=== PATIENT | male | born 2000 | race African-American/Black ===

== ENCOUNTER 2018-08-17 12:08 | Emergency (ER) | payer OTHER ==
[2018-08-17] MEDS: NS 1,000 ML IV (13:08)
[2018-08-17 13:14] LABS: KETONE, URINE AUTO RFX 2+ mg/dL (NEGATIVE); LEUKOCYTE ESTERASE UR AUTO RFX NEGATIVE (NEGATIVE); MUCUS, URINE RFX MODERATE (NEGATIVE); NITRITE, URINE AUTO RFX NEGATIVE (NEGATIVE); RBC, URINE AUTO RFX 31 /HPF (0-3); SPECIFIC GRAVITY UR AUTO RFX 1.027 (1.002-1.035); SQUAM EPITHELIAL CELL UR AURFX 0 /HPF (0-6); WBC, URINE AUTO RFX 6 /HPF (0-3)
[2018-08-17 13:17] LABS: BASO % 0.2 % (0.0-1.0); EOS % 0.1 % (0.0-3.0); HEMATOCRIT 45.7 % (42.0-52.0); HEMOGLOBIN 15.6 g/dl (13.5-17.5); IMMATURE GRANULOCYTE % 0.4 % (0-3.0); LYMPH # 1.4 10^3/uL (1.5-6.5); LYMPH % 9.1 % (24.0-44.0); MEAN CORPUSCULAR HEMOGLOBIN 31.6 pg (27.0-33.0); MEAN CORPUSCULAR HGB CONC 34.1 g/dl (32.0-36.5); MEAN CORPUSCULAR VOLUME 92.7 fl (80.0-96.0); MONO # 1.6 10^3/uL (0.0-0.8); MONO % 10.2 % (0.0-5.0); NEUTROPHILS # 12.6 10^3/uL (1.8-7.7); PLATELET COUNT, AUTOMATED 223 10^3/uL (150-450); RED BLOOD COUNT 4.93 10^6/uL (4.30-6.10); RED CELL DISTRIBUTION WIDTH 12.6 % (11.5-14.5); WHITE BLOOD COUNT 15.8 10^3/uL (4.0-10.0)
[2018-08-17 13:38] LABS: ALBUMIN 4.1 GM/DL (3.2-5.2); ALBUMIN/GLOBULIN RATIO 1.08 (1.00-1.93); ALKALINE PHOSPHATASE 73 U/L (45-117); ALT/SGPT 31 U/L (12-78); ANION GAP 9 MEQ/L (8-16); AST/SGOT 22 U/L (7-37); BILIRUBIN,DIRECT 0.3 MG/DL (0.0-0.2); BILIRUBIN,TOTAL 1.3 MG/DL (0.2-1.0); BLOOD UREA NITROGEN 12 MG/DL (7-18); CALCIUM LEVEL 9.4 MG/DL (8.5-10.1); CARBON DIOXIDE LEVEL 26 MEQ/L (21-32); CHLORIDE LEVEL 100 MEQ/L (98-107); CREATININE FOR GFR 0.93 MG/DL (0.70-1.30); GLUCOSE, FASTING 96 MG/DL (70-100); POTASSIUM SERUM 4.2 MEQ/L (3.5-5.1); SODIUM LEVEL 135 MEQ/L (136-145); TOTAL PROTEIN 7.9 GM/DL (6.4-8.2)
[2018-08-17 13:40] LABS: LACTIC ACID SEPSIS PROTOCOL 1.3 MMOL/L (0.4-2.0)
[2018-08-17] MEDS ORDERED: ISOVUE-370 76% 100ML VIAL (Q9967) As Ordered (13:47)
[2018-08-17 14:34] LABS: ERYTHROCYTE SEDIMENTATION RATE 6 mm/hr (0-15)
[2018-08-17 15:07] LABS: CONTROL LINE MONO INT CTR LINE PRESENT; MONO SCRN NEGATIVE (NEGATIVE)
[2018-08-17] MEDS: dexameTHASONE 4 MG/ML 1ML VIAL (J1100) IV (16:12)
[2018-08-17] MEDS ORDERED: MAGIC MOUTHWASH SUSPENSION BTL SS (17:00)
[2018-08-17] MEDS: MAGIC MOUTHWASH SUSPENSION BTL SS (18:09)
== END 2018-08-17 18:34 | disposition home or self-care (01) ==
LOC: M ED 12:08
DX: J03.90 Acute tonsillitis, unspecified (principal); F17.210 Nicotine dependence, cigarettes, uncomplicated; Z79.899 Other long term (current) drug therapy
CPT/HCPCS: Q9967

== ENCOUNTER 2018-12-10 17:57 | Emergency (ER) | payer OTHER ==
[~2018-12-10] VITALS: Ht 195.6 cm; Wt 110.5 kg
[~2018-12-10 17:57] MED LIST: APAP500T10 PO; MAGICMW SSP; PRED20TA PO; PSEU30TA21 PO
[2018-12-10] MEDS ORDERED: IBUP-1114 PO (18:08)
[2018-12-10] MEDS ORDERED: ACETAMINOPHEN 325 MG TAB PO ONE (18:30)
--- NOTE | 2018-12-10 18:49 | REP ---
Clinical: Trauma. Technique: AP, lateral, bilateral oblique and sunrise views right knee . Findings: The osseous structures and joint spaces are intact and normal. There is no evidence for acute fracture or dislocation. No joint effusion is appreciated. Surrounding soft tissues are unremarkable. No subcutaneous emphysema or radiodense foreign body. Impression: Normal examination. No acute fracture or dislocation. Electronically Signed by Diego Ocampo MD 12/10/2018 06:41 P
[2018-12-10] MEDS ORDERED: KETO10TAB PO (18:51)
[2018-12-10 19:09] VITALS: BP 135/80
== END 2018-12-10 19:20 | disposition home or self-care (01) ==
LOC: M ED 17:57
DX: S80.01XA Contusion of right knee, initial encounter (principal); W21.89XA Striking against or struck by other sports equipment, initial encounter; Y92.89 Other specified places as the place of occurrence of the external cause; Y93.23 Activity, snow (alpine) (downhill) skiing, snowboarding, sledding, tobogganing and snow tubing

== ENCOUNTER 2019-03-21 06:34 | Emergency (ER) | payer OTHER ==
[~2019-03-21] VITALS: Ht 190.5 cm; Wt 115.0 kg
[~2019-03-21 06:34] MED LIST changes: +IBUP-1114 PO; +KETO10TAB PO
[2019-03-21] MEDS ORDERED: METOCLOPRAMIDE INJ 10MG/2ML VIAL (J2765) IV ONE (07:15)
[2019-03-21] MEDS ORDERED: ACETAMINOPHEN 500 MG TAB PO ONE (07:15)
[2019-03-21] MEDS ORDERED: diphenhydrAMINE INJ 50MG/ML VIAL (J1200) IV ONE (07:15)
[2019-03-21] MEDS ORDERED: NS 1,000 ML IV ONE (07:15)
--- NOTE | 2019-03-21 07:29 | REPVR ---
EXAM: CT Head Without Contrast EXAM DATE/TIME: 03/21/2019 7:14 AM CLINICAL HISTORY: 18 years old, male; Pain; Headache not specified; Additional info: Headache/vomiting TECHNIQUE: Imaging protocol: Axial computed tomography images of the head without contrast. Radiation optimization: All CT scans at this facility use at least one of these dose optimization techniques: automated exposure control; mA and/or kV adjustment per patient size (includes targeted exams where dose is matched to clinical indication); or iterative reconstruction. COMPARISON: No relevant prior studies available. FINDINGS: Brain: The most inferior aspect of the temporal lobes and frontal lobe are not included on this exam. The loja-white matter differentiation is preserved.. There is no intra-or extra-axial hemorrhage. There is no mass effect. Ventricles: Normal. No ventriculomegaly. Bones/joints: Unremarkable. No acute fracture. Sinuses: Visualized sinuses are unremarkable. No fluid levels. Mastoid air cells: Visualized mastoid air cells are well aerated. No mastoid effusion. Soft tissues: Unremarkable. IMPRESSION: No CT evidence of intracranial hemorrhage, mass effect or midline shift. Most inferior aspect of the temporal and frontal lobes are not included on this exam. Electronically signed by: Mckinley Keenan On 03/21/2019 07:29:00 AM
[2019-03-21] MEDS ORDERED: KETOROLAC 30 MG/ML VIAL (J1885) IV ONE (08:30)
[2019-03-21 08:40] VITALS: BP 128/59
== END 2019-03-21 08:58 | disposition home or self-care (01) ==
LOC: M ED 06:34
DX: R51 Headache (principal); Z72.0 Tobacco use
CPT/HCPCS: 70450; 96361; 96374; 96375; 99283; J1200; J1885; J2765

== ENCOUNTER 2019-07-06 22:03 | Emergency (ER) | payer OTHER ==
[~2019-07-06] VITALS: Ht 190.5 cm; Wt 110.0 kg
[2019-07-06] MEDS ORDERED: ALBUTEROL SULFATE 2.5 MG/0.5 ML INH NEB SOLN NEB ONE (23:45)
[2019-07-06] MEDS ORDERED: predniSONE 20 MG TAB PO ONE (23:45)
[2019-07-07 01:06] LABS: INFLUENZA A AMPLIFICATION NEGATIVE (NEGATIVE); INFLUENZA B AMPLIFICATION NEGATIVE (NEGATIVE)
[2019-07-07 01:13] VITALS: BP 136/31
[2019-07-07] MEDS ORDERED: VENTAER INH (01:18)
[2019-07-07] MEDS ORDERED: PRED20TA PO (01:18)
[2019-07-07] MEDS ORDERED: ALBUTEROL 90 MCG/ACT 8GM HFA INHALER INH ONE (01:30)
--- NOTE | 2019-07-07 09:38 | REP ---
CHEST PA AND LATERAL: 07/06/2019. Clinical history: Cough, dyspnea. Findings: No prior studies. Lungs marginally adequate in the degree of inflation. There is some cuffed bronchi in the perihilar regions bilaterally. There is no dense consolidation, effusion, infiltrate, atelectasis or mass. Heart is not enlarged. Aorta and airway are intact and there is no widening of the mediastinum. The bony thorax shows no focal lesion. Impression: 1. Perihilar changes of bronchitis or reactive airway disease. No dense consolidation or effusion. Electronically Signed by Omega Rosas MD 07/07/2019 07:31 P
== END 2019-07-07 01:26 | disposition home or self-care (01) ==
LOC: M ED 22:03
DX: J41.8 Mixed simple and mucopurulent chronic bronchitis (principal); Z87.891 Personal history of nicotine dependence

== ENCOUNTER 2020-09-23 21:53 | Inpatient (IN) | payer OTHER ==
[~2020-09-23] VITALS: Ht 190.5 cm; Wt 109.0 kg
[~2020-09-23 21:53] MED LIST changes: +VENTAER INH
[2020-09-23] MEDS ORDERED: NS 1,000 ML IV ONE (22:45)
[2020-09-23] MEDS ORDERED: METOCLOPRAMIDE INJ 10MG/2ML VIAL (J2765 PER 1) IV ONE (22:45)
[2020-09-23 22:50] LABS: BASO % 0.2 % (0.0-1.0); EOS # 0.1 10^3/uL (0.0-0.5); EOS % 1.2 % (0.0-3.0); HEMATOCRIT 48.5 % (42.0-52.0); HEMOGLOBIN 16.6 g/dl (13.5-17.5); LYMPH # 2.9 10^3/uL (1.5-5.0); LYMPH % 32.4 % (24.0-44.0); MEAN CORPUSCULAR HEMOGLOBIN 31.9 pg (27.0-33.0); MEAN CORPUSCULAR HGB CONC 34.2 g/dl (32.0-36.5); MEAN CORPUSCULAR VOLUME 93.1 fl (80.0-96.0); MONO # 0.9 10^3/uL (0.0-0.8); MONO % 10.2 % (0.0-5.0); NEUTROPHILS # 4.9 10^3/uL (1.5-8.5); NEUTROPHILS % 55.8 % (36.0-66.0); PLATELET COUNT, AUTOMATED 272 10^3/uL (150-450); RED BLOOD COUNT 5.21 10^6/uL (4.30-6.10); WHITE BLOOD COUNT 8.9 10^3/uL (4.0-10.0)
--- NOTE | 2020-09-23 23:08 | REPVR ---
PROCEDURE INFORMATION: Exam: CT Head Without Contrast Exam date and time: 09/23/2020 10:51 PM Age: 20 years old Clinical indication: Altered mental status/memory loss TECHNIQUE: Imaging protocol: Computed tomography of the head without contrast. Radiation optimization: All CT scans at this facility use at least one of these dose optimization techniques: automated exposure control; mA and/or kV adjustment per patient size (includes targeted exams where dose is matched to clinical indication); or iterative reconstruction. COMPARISON: CT Head without contrast 03/21/2019 7:11 AM FINDINGS: Brain: No intracranial mass, mass effect or midline shift. No acute intracranial hemorrhage. No CT evidence of acute cortical infarct. Ventricles, cisterns, and sulci are normal in size for age. Bones/joints: No calvarial fracture or destructive process. Paranasal sinuses: Imaged paranasal sinuses are normally aerated. Mastoid air cells: Mastoid air cells and middle ear structures are normally aerated. Orbital cavity: Imaged orbits are unremarkable. Soft tissues: No focal extracranial soft tissue swelling. IMPRESSION: No acute or concerning focal intracranial abnormality. Electronically signed by: Davie Sparks On 09/23/2020 23:08:23 PM
[2020-09-23 23:16] LABS: ACETAMINOPHEN LEVEL < 2.0 UG/ML (10.0-30.0); ALBUMIN 4.3 GM/DL (3.2-5.2); ALT/SGPT 27 U/L (12-78); BILIRUBIN,DIRECT 0.2 MG/DL (0.0-0.2); BILIRUBIN,TOTAL 0.6 MG/DL (0.2-1.0); BLOOD UREA NITROGEN 11 MG/DL (7-18); CALCIUM LEVEL 8.7 MG/DL (8.5-10.1); CARBON DIOXIDE LEVEL 29 MEQ/L (21-32); CHLORIDE LEVEL 104 MEQ/L (98-107); CK-MB VALUE MASS < 1.0 NG/ML (<3.6); CPK CREATINE PHOSPHOKINASE 677 U/L (39-308); ETHYL ALCOHOL (ETHANOL) 0.005 % (0.000-0.010); GLOMERULAR FILTRATION RATE > 60.0 (>60); GLUCOSE, FASTING 99 MG/DL (70-100); MB/CK RELATIVE INDEX 0.15 (< OR =4); POTASSIUM SERUM 3.7 MEQ/L (3.5-5.1); SALICYLATE LEVEL 1.8 MG/DL (5.0-30.0); SODIUM LEVEL 143 MEQ/L (136-145); TOTAL PROTEIN 7.5 GM/DL (6.4-8.2); TROPONIN I < 0.02 NG/ML (< 0.10)
[2020-09-23 23:23] LABS: AMPHETAMINES LEVEL URINE NEGATIVE (NEGATIVE); BARBITURATES URINE NEGATIVE (NEGATIVE); BENZODIAZEPINES URINE NEGATIVE (NEGATIVE); CANNABINOIDS URINE NEGATIVE (NEGATIVE); COCAINE METABOLITE URINE NEGATIVE (NEGATIVE); METHADONE URINE NEGATIVE (NEGATIVE); OPIATES URINE NEGATIVE (NEGATIVE); PHENCYCLIDINE URINE NEGATIVE (NEGATIVE)
[2020-09-24] MEDS ORDERED: MAALOX 30 ML SUSP *UDC PO PRN
[2020-09-24] MEDS ORDERED: ACETAMINOPHEN TAB 650MG DOSE (2X325MG) PO PRN
[2020-09-24] MEDS ORDERED: MOM 30ML SUSPENSION UDC PO PRN
--- NOTE | 2020-09-24 00:01 | HPEPDOC ---
[facility] Medical History & Physical Date of Admission Sep 23, 2020 Date of Service: Sep 24, 2020 Attending Physician: ABDULLAHI STOUT MD History and Physical TIME OF SERVICE: 1210am CHIEF COMPLAINT: amnesia HISTORY OF PRESENT ILLNESS: This 20 yr old M presented with c/o a lapse in his memory. This morning he remembers waking up, talking with his as they prepared to sign paper work for a lease on their new apartment, and added that they had plans to celebrate late on during the day. The next thing he remembers is waking up in the apartment lying on the floor and that his was not in the apartment. He tried to call her but she didn't strip picker her phone. He called one of his friends who told him that he and his have been since and that he is going to get a divorce. His friend also told him that he was recently found outside after binge drinking. The patient was unable to recall these events. Prior to living in the apartment the patient was able to recall that he had been living in the [facility]. He was recently deployed in [place]; after returning has been struggling with anger. Currently his only other c/o is of a headache affecting the front of his head which is not typical of his migraines; usually the migraines affect the back of his head. REVIEW OF SYSTEMS: 12 point review of systems negative except as listed in HPI PAST MEDICAL/ SURGICAL HISTORY: Migraines Possible asthma (has been given inhaler but has not been formally tested) SOCIAL HISTORY: + tobacco 1 pack per week + alcohol occasionally - recreational drugs His siblings and parents live in [place] FAMILY HISTORY: HTN, DLP ALLERGIES: Please see below. HOME MEDICATIONS: Please see below. PHYSICAL EXAMINATION: Vital Signs Date Time Temp Pulse Resp B/P (MAP) Pulse Ox O2 Delivery O2 Flow Rate FiO2 09/23/20 21:54 99.2 102 18 139/89 (106) 98 Room Air GEN: well-nourished / well developed/ teary during parts of the exam INTEGUMENT: not flushed/ not jaundice / + tattoos HEENT: lips acyanotic /mucus membranes moist and pink / mild conjuctival injection CVS: RRR/NMRG/ radial pulses intact / no lower extremity edema LUNGS: able to speak full sentences without stopping to take a breath / no coughing / coarse expiratory rhonchi bilaterally ABDOMEN: Contour (flat) /soft & not tender with palpation MSK/EXTREMITIES: NCAT / range of motion intact in all 4 extremities NEURO: CN 2-12 are grossly intact / speech is not dysarthric / strength is 5/5 / has left and right horizontal nystagmus PSYCH: alert and oriented / able to understand and follow all commands LABORATORY DATA: 09/23/20 22:23 Immature Granulocyte % (Auto) 0.2, Neutrophils (%) (Auto) 55.8, Lymphocytes (%) (Auto) 32.4, Monocytes (%) (Auto) 10.2H, Eosinophils (%) (Auto) 1.2, Basophils (%) (Auto) 0.2, Neutrophils # (Auto) 4.9, Lymphocytes # (Auto) 2.9, Monocytes # (Auto) 0.9H, Eosinophils # (Auto) 0.1, Basophils # (Auto) 0.0, Nucleated Red Blood Cells % (auto) 0.0, Urine Color YELLOW, Urine Appearance HAZY, Urine pH 6.0, Urine Specific [place] 1.027, Urine Protein 1+H, Urine Glucose (UA) NEGATIVE, Urine Ketones TRACEH, Urine Blood 1+H, Urine Nitrite NEGATIVE, Urine Bilirubin NEGATIVE, Urine Urobilinogen 4.0H, Urine Leukocyte Esterase NEGATIVE, Urine WBC (Auto) 2, Urine RBC (Auto) 4H, Urine Hyaline Casts (Auto) 0, Urine Bacteria (Auto) NEGATIVE, Urine Squamous Epithelial Cells 0, Urine Mucus (Auto) SMALL, Urine Sperm (Auto) , Anion Gap 10, Glomerular Filtration Rate > 60.0, Carlos cium Level 8.7, Total Bilirubin 0.6, Direct Bilirubin 0.2, Aspartate Amino Transf (AST/SGOT) 23, Alanine Aminotransferase (ALT/SGPT) 27, Alkaline Phosphatase 68, Total Creatine Kinase 677H, Creatine Kinase MB < 1.0, Creatine Kinase MB Relative Index 0.15, Troponin I < 0.02, Total Protein 7.5, Albumin 4.3, Albumin/Globulin Ratio 1.3, Thyroid Stimulating Hormone (TSH) 1.080, Salicylates Level 1.8L, Acetaminophen Level < 2.0L, Ethyl Alcohol Level 0.005 09/23/20 22:47: Urine Opiates Screen NEGATIVE, Urine Methadone Screen NEGATIVE, Urine Barbiturates Screen NEGATIVE, Urine Phencyclidine Screen NEGATIVE, Urine Amphetamines Screen NEGATIVE, Urine Benzodiazepines Screen NEGATIVE, Urine Cocaine Metabolite Screen NEGATIVE, Urine Cannabinoids Screen NEGATIVE IMAGING: CT head "No acute or concerning focal intracranial abnormality." MRI brain "Unremarkable noncontrast MRI of the brain." MRA brain "Unremarkable MR angiogram of the [place] and intracranial vertebrobasilar system." MICROBIOLOGY: Please see below. ASSESSMENT: is a 20 yr old w a hx of migraines who presented w c/o memory lapse in the setting of separation from his ; he will be admitted for evaluation of amnesia. PLAN: 1. Amnesia His CT head, MRI/MRA were negative for any acute process. His metabolic panel & drug screen was negative I suspect his amnesia may be psychogenic or dissociative in nature and due to trauma from separation & impending divorce from his . Plan: admit to medical floor for observation overnight/ they day time team may consider contacting his family and friends to obtain collateral history / The patient also mentioned having issues with anger after returning from [facility]; it is possible that he may have PTSD and or Chronic Traumatic Encephalopathy if he has been exposed to physical trauma that has caused concussions. The day time team may consider Psych and Neuro Consult to determine if he should under-go undergo formal screening for concussions (which the [place] conducts) and possibly have an LP to obtain CSF for amyloid and tau and functional neuroimaging (ie amyloid positron emission tomography) / 1:1 sitter 2. Migraines / SALINAS Plan: acetaminophen PRN 3. Tobacco Abuse Plan: smoking cessation education 4. Elevated CPK / Mild Rhabdo Plan: IVF / f/u CPK, BUN, Cr and GFR 5. Possible Asthma vs Reactive Airway disease He had expiratory rhonchi and mentioned that he has been told that he may have asthma Plan: f/u w PCP for referral for formal PFTs DVT PROPHYLAXIS: SCDs DISPOSITION: home after more than 2 midnight's stay Home Medications No Active Prescriptions or Reported Meds Allergies Coded Allergies: No Known Allergies (Unverified , 09/23/20) A-FIB/CHADSVASC A-FIB History Current/History of A-Fib/PAF?: No Current PO Anticoag Therapy: No ABDULLAHI STOUT MD Sep 24, 2020 00:01
--- NOTE | 2020-09-24 01:18 | REPVR ---
PROCEDURE INFORMATION: Exam: MR Head Without Contrast Exam date and time: 09/24/2020 12:41 AM Age: 20 years old Clinical indication: Pain; Altered mental status/memory loss; Headache; Tension; Patient HX: H/a with memory loss; Additional info: Headache, amnesia TECHNIQUE: Imaging protocol: MR of the head without contrast. COMPARISON: CT Head without contrast 09/23/2020 10:43 PM FINDINGS: No abnormal restriction of diffusion to indicate acute CVA. Midline structures and cerebellar tonsillar position appear normal. Ventricles, cisterns and sulci are symmetric and normal for age. No intracranial mass, midline shift or abnormal extra-axial fluid. No acute intracranial hemorrhage or hemosiderin deposition. No abnormal white matter signal on FLAIR and T2 sequences. Optic chiasm and pituitary infundibulum appear normal. No cerebellopontine angle mass Normal vascular flow voids in major intracranial arteries and dural venous sinuses. Paranasal sinuses are normally aerated. Mastoid air cells are normally aerated. Optic globes and orbits are unremarkable. IMPRESSION: Unremarkable noncontrast MRI of the brain. Electronically signed by: Davie Sparks On 09/24/2020 01:18:27 AM
--- NOTE | 2020-09-24 01:20 | REPVR ---
PROCEDURE INFORMATION: Exam: MR Angiogram Head Without Contrast, Arteries Exam date and time: 09/24/2020 12:41 AM Age: 20 years old Clinical indication: Pain; Type not specified; Headache; Patient HX: H/a with memory loss; Additional info: Headache, amnesia TECHNIQUE: Imaging protocol: MR angiogram head without contrast. Exam focused on the arteries. 3D rendering (Not supervised by radiologist): MIP and/or 3D reconstructed images were created by the technologist. COMPARISON: CT Head without contrast 09/23/2020 10:43 PM FINDINGS: Anterior circulation: Normal flow signal and luminal caliber in the petrous, cavernous and supraclinoid internal carotid arteries. Normal appearance of the anterior cerebral artery branches and middle cerebral artery branches through the MCA trifurcations. No occlusion, high-grade focal stenosis or dissection. No aneurysm. Posterior circulation: Normal distal vertebral arteries, with patent normal caliber basilar artery, and normal superior cerebellar and posterior cerebral arteries. No occlusion, high-grade stenosis or aneurysm. IMPRESSION: Unremarkable MR angiogram of the [place] and intracranial vertebrobasilar system. Electronically signed by: Davie Sparks On 09/24/2020 01:19:51 AM
[2020-09-24] MEDS ORDERED: NS 1,000 ML IV SCH (01:30)
[2020-09-24 01:48] LABS: RSV AMPLIFICATION NEGATIVE (NEGATIVE)
[2020-09-24 03:42] VITALS: BP 124/82
[2020-09-24 06:00] VITALS: BP 117/65
[2020-09-24 06:39] LABS: MEAN CORPUSCULAR HEMOGLOBIN 32.1 pg (27.0-33.0); MEAN CORPUSCULAR HGB CONC 34.1 g/dl (32.0-36.5); PLATELET COUNT, AUTOMATED 240 10^3/uL (150-450); RED BLOOD COUNT 4.68 10^6/uL (4.30-6.10); WHITE BLOOD COUNT 7.2 10^3/uL (4.0-10.0)
[2020-09-24 06:49] LABS: HEMOGLOBIN A1c 5.5 %
[2020-09-24 07:14] LABS: ALBUMIN 3.6 GM/DL (3.2-5.2); ALT/SGPT 25 U/L (12-78); BILIRUBIN,TOTAL 0.8 MG/DL (0.2-1.0); BLOOD UREA NITROGEN 11 MG/DL (7-18); CALCIUM LEVEL 8.6 MG/DL (8.5-10.1); CARBON DIOXIDE LEVEL 30 MEQ/L (21-32); CHLORIDE LEVEL 110 MEQ/L (98-107); CPK CREATINE PHOSPHOKINASE 487 U/L (39-308); CREATININE FOR GFR 0.99 MG/DL (0.70-1.30); GLOMERULAR FILTRATION RATE > 60.0 (>60); GLUCOSE, FASTING 94 MG/DL (70-100); SODIUM LEVEL 142 MEQ/L (136-145); TOTAL PROTEIN 6.5 GM/DL (6.4-8.2)
--- NOTE | 2020-09-24 08:04 | ECGEPIP ---
[facility] - ED Test Date: 2020-09-23 Pat Name: SANTOS HERRERA Department: Room: [place] [address] Gender: Male Transition Rn: AMADO : 2000 Requested By: ARIS Carbajal Order Number: [id number] Reading MD: Elieser Ruiz Measurements Intervals [place] Rate: 92 P: 48 LA: 138 QRS: 35 QRSD: 103 T: 15 QT: 363 QTc: 449 Interpretive Statements SINUS RHYTHM POOR R WAVE PROGRESSION NO PRIORS FOR COMPARISON Electronically Signed on 09-24-2020 8:04:39 EST by Elieser Ruiz
--- NOTE | 2020-09-24 11:04 | DS.PDOC ---
Discharge Summary General Date of Admission Sep 23, 2020 at 23:56 Date of Discharge 09/24/2020 Specialist/Consultants Involve: Carissa Valdez Discharge Summary PROCEDURES PERFORMED DURING STAY: [None]. ADMITTING DIAGNOSES / DISCHARGE DIAGNOSES: Amnesia - possibly 2/2 conversion disorder COMPLICATIONS/CHIEF COMPLAINT: Global Amnesia. HISTORY OF PRESENT ILLNESS: This 20 yr old M presented with c/o a lapse in his memory. This morning he remembers waking up, talking with his as they prepared to sign paper work for a lease on their new apartment and reports that they had plans to celebrate late on during the day. The next thing he remembers is waking up in the apa rtment lying on the floor. His and his was not in the apartment. He tried to call her but she didn't greens picker her phone. He called one of his friends who told him that he and his have been since and that he is going to get a divorce. His friend also told him that he was recently found outside after binge drinking. The patient was unable to recall all of these events. Prior to living in the apartment the patient was able to recall that he had been living in the [facility]. He was recently deployed in [place]; after returning he reports struggling with anger. Currently his only other c/o is of a mild headache. HOSPITAL COURSE: Patient was admitted to the hospitalist service where he has had an extensive workup. Patient had CT scan of his brain, MRI of his brain and MRA of his brain that were all unrevealing for any acute pathology. He did not have any electrolyte abnormalities, kidney dysfunction, liver dysfunction or any signs of infection. He has remained hemodynamically stable without any adverse. Psychiatry called on consultation and case has been discussed. Patient appears to have conversion disorder. Will be evaluated by Dr. Ragsdale of psychiatry, and if she agrees patient will be discharged home with outpatient follow-up with behavioral health and primary care provider within the next 7 days. DISCHARGE MEDICATIONS: Please see below ALLERGIES: Please see below. PHYSICAL EXAMINATION ON DISCHARGE: VITAL SIGNS: Please see below. GEN: Well-nourished, well developed NAD INTEGUMENT: not flushed, not jaundice, + tattoos on arms HEENT: lips acyanotic, mucus membranes moist and pink, mild conjuctival injection CVS: RRR/NMRG, radial pulses intact, no lower extremity edema LUNGS: Able to speak full sentences without stopping to take a breath, no coughing, unable to appreciate wheezes, rhonci or rales ABDOMEN: Contour (flat), soft, nontender with palpation, normal bowel sounds MSK/EXTREMITIES: NCAT, full range of motion in all 4 extremities NEURO: CN 2-12 are grossly intact, speech is not dysarthric, strength is 5/5 in extremities throughout PSYCH: AAOX3; able to understand and follow all commands; normal mood and affect LABORATORY DATA: Please see below. IMAGING: CT head "No acute or concerning focal intracranial abnormality." MRI brain "Unremarkable noncontrast MRI of the brain." MRA brain "Unremarkable MR angiogram of the [place] and intracranial vertebrobasilar system." PROGNOSIS: Good ACTIVITY:As tolerated DIET: Regular DISCHARGE PLAN: Psychiatrist (Dr. Ragsdale) to see and examine patient prior to discharge home to follow up with outpt psych within 7 days and PCP within 7 days DISCHARGE INSTRUCTIONS: 1. Follow up with PCP and outpatient behavioral health within 7 days of hospital discharge 2. Remain compliant with treatment plan and medications 3. Return to the ER if you experience any problems DISCHARGE CONDITION: Stable TIME SPENT ON DISCHARGE: 30 minutes. Vital Signs/I&Os Vital Signs Date Time Temp Pulse Resp B/P (MAP) Pulse Ox O2 Delivery O2 Flow Rate FiO2 09/24/20 06:00 96.8 68 18 117/65 (82) 100 Room Air I&O- Last 24 Hours up to 6 AM 09/24/20 06:00 Intake Total 1300 ml Output Total 0 ml Balance 1300 ml Laboratory Data Labs 24H Laboratory Tests 2 09/23/20 22:23: Immature Granulocyte % (Auto) 0.2, Neutrophils (%) (Auto) 55.8, Lymphocytes (%) (Auto) 32.4, Monocytes (%) (Auto) 10.2H, Eosinophils (%) (Auto) 1.2, Basophils (%) (Auto) 0.2, Neutrophils # (Auto) 4.9, Lymphocytes # (Auto) 2.9, Monocytes # (Auto) 0.9H, Eosinophils # (Auto) 0.1, Basophils # (Auto) 0.0, Nucleated Red Blood Cells % (auto) 0.0, Urine Color YELLOW, Urine Appearance HAZY, Urine pH 6.0, Urine Specific [place] 1.027, Urine Protein 1+H, Urine Glucose (UA) NEGATIVE, Urine Ketones TRACEH, Urine Blood 1+H, Urine Nitrite NEGATIVE, Urine Bilirubin NEGATIVE, Urine Urobilinogen 4.0H, Urine Leukocyte Esterase NEGATIVE, Urine WBC (Auto) 2, Urine RBC (Auto) 4H, Urine Hyaline Casts (Auto) 0, Urine Bacteria (Auto) NEGATIVE, Urine Squamous Epithelial Cells 0, Urine Mucus (Auto) SMALL, Urine Sperm (Auto) , Anion Gap 10, Glomerular Filtration Rate > 60.0, Calcium Level 8.7, Total Bilirubin 0.6, Direct Bilirubin 0.2, Aspartate Amino Transf (AST/SGOT) 23, Alanine Aminotransferase (ALT/SGPT) 27, Alkaline Phosphatase 68, Total Creatine Kinase 677H, Creatine Kinase MB < 1.0, Creatine Kinase MB Relative Index 0.15, Troponin I < 0.02, Total Protein 7.5, Albumin 4.3, Albumin/Globulin Ratio 1.3, Thyroid Stimulating Hormone (TSH) 1.080, Salicylates Level 1.8L, Acetaminophen Level < 2.0L, Ethyl Alcohol Level 0.005 09/23/20 22:47: Urine Opiates Screen NEGATIVE, Urine Methadone Screen NEGATIVE, Urine Barbiturates Screen NEGATIVE, Urine Phencyclidine Screen NEGATIVE, Urine Amphetamines Screen NEGATIVE, Urine Benzodiazepines Screen NEGATIVE, Urine Cocaine Metabolite Screen NEGATIVE, Urine Cannabinoids Screen NEGATIVE 09/24/20 01:03: Coronavirus (COVID-19)(PCR) NEGATIVE, Influenza Type A (RT-PCR) NEGATIVE, Influenza Type B (RT-PCR) NEGATIVE, Respiratory Syncytial Virus (PCR) NEGATIVE 09/24/20 06:15: Nucleated Red Blood Cells % (auto) 0.0, Anion Gap 2L, Glomerular Filtration Rate > 60.0, Calcium Level 8.6, Total Bilirubin 0.8, Aspartate Amino Transf (AST/SGOT) 19, Alanine Aminotransferase (ALT/SGPT) 25, Alkaline Phosphatase 55, Total Creatine Kinase 487H, Total Protein 6.5, Albumin 3.6, Albumin/Globulin Ratio 1.2, Estimated Mean Plasma Glucose 111H, Hemoglobin A1c 5.5 CBC/BMP Laboratory Tests 09/23/20 22:23 09/24/20 06:15 Discharge Medications No Active Prescriptions or Reported Meds Allergies Coded Allergies: No Known Allergies (Unverified , 09/23/20) GME ATTESTATION GME ATTESTATION My faculty preceptor for this patient encounter was physically present during the encounter and was fully available. All aspects of the patient interview, examination, medical decision making process, and medical care plan development were reviewed and approved by the faculty preceptor. The faculty preceptor is aware and concurs with the plan as stated in the body of this note and will attest to such by his/her cosignature. ATTENDING NOTE I, Jared Christensen, have independently examined this patient and performed my own physical exam, as well as reviewed the documentation and edited where necessary. I have discussed in detail with the resident / student the findings and plan of treatment as documented by the resident / student and edited their note. I agree with their findings and treatment plan and have edited their documentatio n. I will continue to follow the patient during this hospital stay. Time spent on discharge 35 minutes Seamus Mosley DO Sep 24, 2020 11:04 JARED CHRISTENSEN MD Sep 24, 2020 16:14
[2020-09-24 14:00] VITALS: BP 126/75
[2020-09-24] MEDS ORDERED: NICOTINE 14 MG/24 HR TRANSDERMAL TD ONE (17:45)
[2020-09-24 20:50] VITALS: BP 126/75
== END 2020-09-24 20:54 | disposition home or self-care (01) | DRG 71 ==
LOC: M ED 21:53 → M ED INP 23:56 → ENRESERV 09-24 02:19 → M MSPAV 09-24 03:42
PROVIDERS: ADMIT Internal Medicine; ATTEND Internal Medicine
DX: G45.4 Transient global amnesia (principal); M62.82 Rhabdomyolysis; F44.6 Conversion disorder with sensory symptom or deficit; F17.200 Nicotine dependence, unspecified, uncomplicated; G43.909 Migraine, unspecified, not intractable, without status migrainosus; J45.909 Unspecified asthma, uncomplicated

== ENCOUNTER 2021-04-23 09:58 | Emergency (ER) | payer OTHER ==
[~2021-04-23] VITALS: Ht 185.4 cm; Wt 110.5 kg
[2021-04-23] MEDS ORDERED: NS 1,000 ML IV ONE (12:05)
[2021-04-23] MEDS ORDERED: PANTOPRAZOLE 40MG VIAL (C9113 PER 1) IV ONE (12:05)
[2021-04-23] MEDS ORDERED: ONDANSETRON 4MG/2ML VIAL IV ONE (12:10)
[2021-04-23 12:11] LABS: BASO % 0.1 % (0.0-1.0); EOS % 0.1 % (0.0-3.0); HEMATOCRIT 48.3 % (42.0-52.0); HEMOGLOBIN 16.6 g/dl (13.5-17.5); LYMPH # 0.8 10^3/uL (1.5-5.0); LYMPH % 7.3 % (24.0-44.0); MEAN CORPUSCULAR HEMOGLOBIN 32.5 pg (27.0-33.0); MEAN CORPUSCULAR HGB CONC 34.4 g/dl (32.0-36.5); MEAN CORPUSCULAR VOLUME 94.7 fl (80.0-96.0); MONO # 0.4 10^3/uL (0.0-0.8); MONO % 3.6 % (2.0-8.0); NEUTROPHILS # 9.9 10^3/uL (1.5-8.5); NEUTROPHILS % 88.5 % (36.0-66.0); PLATELET COUNT, AUTOMATED 263 10^3/uL (150-450); WHITE BLOOD COUNT 11.1 10^3/uL (4.0-10.0)
[2021-04-23 12:32] LABS: ALBUMIN 4.7 GM/DL (3.2-5.2); BILIRUBIN,DIRECT 0.1 MG/DL (0.0-0.2); BILIRUBIN,TOTAL 0.5 MG/DL (0.2-1.0); TOTAL PROTEIN 8.3 GM/DL (6.4-8.2)
[2021-04-23 12:42] LABS: INR 0.89; PROTHROMBIN TIME 12.2 SECONDS (12.5-14.3)
[2021-04-23 12:43] LABS: PARTIAL THROMBOPLASTIN TIME 24.5 SECONDS (24.2-38.5)
[2021-04-23] MEDS: GASTROGRAFIN SOLUTION 30ML PO SCH ×2 (13:14→13:15)
[2021-04-23] MEDS ORDERED: ISOVUE-370 76% 100ML VIAL As Ordered ONE (14:04)
[2021-04-23 14:23] LABS: AMPHETAMINES LEVEL URINE NEGATIVE (NEGATIVE); BARBITURATES URINE NEGATIVE (NEGATIVE); BENZODIAZEPINES URINE NEGATIVE (NEGATIVE); CANNABINOIDS URINE NEGATIVE (NEGATIVE); COCAINE METABOLITE URINE NEGATIVE (NEGATIVE); METHADONE URINE NEGATIVE (NEGATIVE); OPIATES URINE NEGATIVE (NEGATIVE); PHENCYCLIDINE URINE NEGATIVE (NEGATIVE)
--- NOTE | 2021-04-23 14:30 | REP ---
INDICATION: hematemesis, bloody stools, chronic alcohol use. COMPARISON: None. TECHNIQUE: Standard helical technique after the intravenous administration of 100 cc Isovue 370 and oral bowel preparatory contrast administration. FINDINGS: The lung bases are clear. The liver, gallbladder, spleen, pancreas, adrenal glands, and kidneys are within normal limits. The bowel loops and the mesenteries are within normal limits. The appendix is well visualized and is normal. The abdominal aorta and para-aortic regions are within normal limits. There is no free fluid or free air. There is no mass or adenopathy. The osseous structures are within normal limits. IMPRESSION: CT findings are within normal limits. <Electronically signed by Ismael Riley > 04/23/21 [id number]
[2021-04-23 14:36] VITALS: BP 143/80
[2021-04-23] MEDS ORDERED: PANT40TA29 PO (14:40)
[2021-04-23] MEDS ORDERED: SUCR1TA PO (14:40)
== END 2021-04-23 14:51 | disposition home or self-care (01) ==
LOC: M ED 09:58
DX: R10.32 Left lower quadrant pain (principal); R10.13 Epigastric pain; K92.0 Hematemesis; F17.200 Nicotine dependence, unspecified, uncomplicated
CPT/HCPCS: 74177; 80047; 80076; 80307; 81001; 83690; 85025; 85610; 85730; 86850; 86900; 86901; 99284; C9113; J2405; Q9963; Q9967

== ENCOUNTER 2021-06-30 19:24 | Emergency (ER) | payer OTHER ==
[~2021-06-30] VITALS: Ht 190.5 cm; Wt 113.8 kg
[~2021-06-30 19:24] MED LIST changes: +PANT40TA29 PO; +SUCR1TA PO
[2021-06-30 21:04] LABS: BASO % 0.3 % (0.0-1.0); EOS # 0.1 10^3/uL (0.0-0.5); EOS % 1.7 % (0.0-3.0); HEMATOCRIT 43.3 % (42.0-52.0); HEMOGLOBIN 15.2 g/dl (13.5-17.5); LYMPH % 41.4 % (24.0-44.0); MEAN CORPUSCULAR HGB CONC 35.1 g/dl (32.0-36.5); MEAN CORPUSCULAR VOLUME 93.9 fl (80.0-96.0); MONO # 0.6 10^3/uL (0.0-0.8); MONO % 8.2 % (2.0-8.0); NEUTROPHILS # 3.5 10^3/uL (1.5-8.5); PLATELET COUNT, AUTOMATED 260 10^3/uL (150-450); RED BLOOD COUNT 4.61 10^6/uL (4.30-6.10); WHITE BLOOD COUNT 7.2 10^3/uL (4.0-10.0)
[2021-06-30 21:18] LABS: INR 0.92; PROTHROMBIN TIME 12.8 SECONDS (12.7-14.5)
[2021-06-30 21:19] LABS: PARTIAL THROMBOPLASTIN TIME 32.5 SECONDS (25.9-37.0)
[2021-06-30 21:35] LABS: ALBUMIN 4.1 GM/DL (3.2-5.2); ALT/SGPT 29 U/L (12-78); BILIRUBIN,DIRECT 0.2 MG/DL (0.0-0.2); BILIRUBIN,TOTAL 0.7 MG/DL (0.2-1.0); BLOOD UREA NITROGEN 14 MG/DL (7-18); CALCIUM LEVEL 9.4 MG/DL (8.5-10.1); CARBON DIOXIDE LEVEL 28 MEQ/L (21-32); CHLORIDE LEVEL 107 MEQ/L (98-107); CREATININE FOR GFR 1.06 MG/DL (0.70-1.30); GLOMERULAR FILTRATION RATE > 60.0 (>60); GLUCOSE, FASTING 89 MG/DL (70-100); LIPASE 87 U/L (73-393); POTASSIUM SERUM 4.3 MEQ/L (3.5-5.1); SODIUM LEVEL 141 MEQ/L (136-145); TOTAL PROTEIN 7.6 GM/DL (6.4-8.2)
[2021-06-30 22:49] VITALS: BP 147/83
== END 2021-06-30 22:51 | disposition home or self-care (01) ==
LOC: M ED 19:24
DX: K62.5 Hemorrhage of anus and rectum (principal); R10.9 Unspecified abdominal pain; R11.2 Nausea with vomiting, unspecified; R51.9 Headache, unspecified; R41.3 Other amnesia; J45.909 Unspecified asthma, uncomplicated; F17.290 Nicotine dependence, other tobacco product, uncomplicated

== ENCOUNTER 2021-08-24 20:00 | Emergency (ER) | payer OTHER ==
[~2021-08-24] VITALS: Ht 190.5 cm; Wt 111.4 kg
[2021-08-24 20:00] VITALS: BP 149/79
--- OUTSIDE RECORDS SUMMARY | 2021-08-24 20:07 | CCD | Continuity of Care Document ---
Author Author Pardeep SALAS Organization Unknown Address [address] [place] [id number] Phone [phone] Care Team Providers Care Try Out Person Name Role Phone David Mcdaniel AUTM Problems Active Problems Provider Date Hemorrhage of rectum and anus Jerod Salas M.D. Onset : 07/21/2021 Social History Type Date Description Comments Sex Unknown ETOH Use Denies alcohol use Tobacco Use Start: Unknown Patient is a current smoker, smo kes some days Allergies and adverse reactions Description No Known Drug Allergies Medications Active Medications SIG Qnty Indications Ordering Provide r Date Proctocare-HC 2.5% Cream three times a day as needed for bleeding or rectal pain. 30gm Jerod Salas M.D. 07/21/[address] 1 cap by mouth twice a day before meals 90caps Zen [facility] 07/21/2021 Suprep Bowel Prep Kit 17.5-3.13-1.6GM/177ML Solution use as directed 354ml Jerod Salas M.D. 07/21/2021 History Medications No Active Medications Jerod dumont M.D. 07/21/2021 - 07/21/2021 Immunizations Description No Information Available Vital Signs Date Vital Result Comment 07/21/2021 11:21am Height 75 inches 6'3" Weight 245.00 lb BP Systolic 126 mmHg BP Diastolic 80 mmHg Heart Rate 56 /min BMI (Body Mass Index) 30.6 kg/m2 Weight 111.132 kg Body Temperature 97.2 F Results Description No Information Available Procedures Description No Information Available Medical Devices Description No Information Available Encounters Description No Information Available Assessments Date Code Description Provider 07/21/2021 R10.9 Abdominal pain Jerod nevarez M.D. 07/21/2021 K62.5 Hemorrhage of rectum and anus Ge aguilar Salas M.D. Plan of Treatment Future Appointment(s):* 09/02/2021 7:45 am - Kermit at Main Office * 09/16/2021 10:30 am - Jerod Salas M.D. at Main Office 07/21/2021 - Jerod Salas M.D.* R10.9 Abdominal pain* Comments:* 21 yo ADS who presents for a colonoscopy/egd due to a h/o rectal bleeding/abdominal pain. Positive c/o abdominal pain, weight loss, change in bowel habits,posit nick rectal bleeding. No family h/o colon cancer. No h/o chest pain, or sob. Plan:1. Colonoscopy + egd.2. Informed consent3. PPi med4. Meds for rectal bleeding. * K62.5 Hemorrhage of rectum and anus* Comments:* 1. Schedule Colonoscopy.2.Informed consent given.3.Pt. advised to stop asa,plavix, and coumadin at least 3 to 7 days prior to the procedure. Functional Status Description No Information Available Mental Status Description No Information Available Referrals Refer to Reason for Referral Status Appt Date Jerod Salas M.D. Scheduled [address] [place] [address] [phone]
--- OUTSIDE RECORDS SUMMARY | 2021-08-24 20:07 | CCD | Continuity of Care Document ---
Author Author Pardeep SALAS Organization Unknown Address [address] [place] [address] Phone [phone] Care Team Providers Care Hand Compositor Name Role Phone David Mcdaniel AUTM [phone] Problems Active Problems Provider Date Hemorrhage of [...] mouth twice a day before meals 90caps eZn Mesa 07/21/2021 Suprep Bowel Prep Kit 17.5-3.13-1.6GM/177ML [...] F Results Description No Information Available Procedures Date Code Description Status 07/21/2021 18964 Office/Outpatient New Moderate M DM 45-59 Minutes Completed Medical Devices Description No Information Available Encounters Type Date Location Provider Dx Diagnosis Office Visit 07/21/2021 9:15a Main Office Jerod Salas M.D. R 10.9 Unspecified abdominal pain K62.5 Hemorrhage of anus and rectu m Assessments Date Code Description Provider 07/21/2021 R10.9 Abdominal pain Jerod nevarez M.D. 07/21/2021 K62.5 Hemorrhage of rectum and anus Ge aguilar Salas M.D. Plan of Treatment Future Appointment(s):* 09/02/2021 7:45 am - Diane-Claudia at Main Office * 09/16/2021 10:30 am [...] Date Jerod Salas M.D. Scheduled [address] [place] [address] [phone]
--- OUTSIDE RECORDS SUMMARY | 2021-08-24 20:07 | CCD ---
Author Author [facility] Organization [facility] Address Unknown Phone Unavailable Care Team Providers Care Electromedical Service Engineer Name Role Phone Amarjit Salas MD Unavailable Unavailable Amarjit Salas MD Unavailable Unavailable Amarjit Salas MD Unavailable Unavailable Amarjit Salas MD Unavailable Unavailable Amarjit Salas MD Unavailable Unavailable Amarjit Salas MD Unavailable Unavailable Amarjit Salas MD Unavailable Unavailable Amarjit Salas MD Unavailable Unavailable Amarjit Salas MD Unavailable Unavailable Amarjit Salas MD Unavailable Unavailable Amarjit Salas MD Unavailable Unavailable Amarjit Salas MD Unavailable Unavailable Amarjit Salas MD Unavailable Unavailable Amarjit Salas MD Unavailable Unavailable Amarjit Salas MD Unavailable Unavailable Amarjit Salas MD Unavailable Unavailable Amarjit Salas MD Unavailable Unavailable Amarjit Salas MD Unavailable Unavailable Amarjit Salas MD Unavailable Unavailable Amarjit Salas MD Unavailable Unavailable Amarjit Salas MD Unavailable Unavailable Amarjit Salas MD Unavailable Unavailable Amarjit Salas MD Unavailable Unavailable Amarjit Salas MD Unavailable Unavailable Amarjit Salas MD Unavailable Unavailable Amarjit Salas MD Unavailable Unavailable Amarjit Salas MD Unavailable Unavailable Amarjit Salas MD Unavailable Unavailable Amarjit Salas MD Unavailable Unavailable Amarjit Salas MD Unavailable Unavailable Amarjit Salas MD Unavailable Unavailable Amarjit Salas MD Unavailable Unavailable Amarjit Salas MD Unavailable Unavailable Amarjit Salas MD Unavailable Unavailable Amarjit Salas MD Unavailable Unavailable Josue, S Jerod MD Unavailable Unavailable Josue, S Jerod MD Unavailable Unavailable Josue, S Jerod MD Unavailable Unavailable Josue, S Jerod MD Unavailable Unavailable Josue, S Jerod MD Unavailable Unavailable Josue, S Jerod MD Unavailable Unavailable Josue, S Jerod MD Unavailable Unavailable Josue, S Jerod MD Unavailable Unavailable Josue, S Jerod MD Unavailable Unavailable Josue, S Jerod MD Unavailable Unavailable Josue, S Jerod MD Unavailable Unavailable Josue, S Jerod MD Unavailable Unavailable Josue, S Jerod MD Unavailable Unavailable Josue, S Jerod MD Unavailable Unavailable Josue, S Jerod MD Unavailable Unavailable Re-disclosure Warning The records that you are about to access may contain information from federally-assisted alcohol or drug abuse programs. If such information is present, then the following federally mandated warning applies: This information has been disclosed to you from records protected by federal confidentiality rules (42 CFR part 2). The federal rules prohibit you from making any further disclosure of this information unless further disclosure is expressly permitted by the written consent of the person to whom it pertains or as otherwise permitted by 42 CFR part 2. A general authorization for the release of medical or other information is NOT sufficient for this purpose. The Federal rules restrict any use of the information to criminally investigate or prosecute any alcohol or drug abuse patient.The records that you are about to access may contain highly sensitive health information, the redisclosure of which is protected by Article 27-F of the [facility] Public Health law. If you continue you may have access to information: Regarding HIV / AIDS; Provided by facilities licensed or operated by the [facility] Office of Mental Health; or Provided by the [facility] Office for People With Developmental Disabilities. If such information is present, then the following [facility] mandated warning applies: This information has been disclosed to you from confidential records which are protected by state law. State law prohibits you from making any further disclosure of this information without the specific written consent of the person to whom it pertains, or as otherwise permitted by law. Any unauthorized further disclosure in violation of state law may result in a fine or care home sentence or both. A general authorization for the release of medical or other information is NOT sufficient authorization for further disc losure. Encounters Encounter Providers Location Date Indications Data Source(s ) Outpatient Attender: Jerod Salas MD Main Office 07/21/2021 09:15:00 AM EDT [facility] ([facility]) Medications Medication Brand Name Start Date Product Form Dose Route Admi nistrative Instructions Pharmacy Instructions Status Indications Reaction Description Data Source(s) Omeprazole 40 MG Delayed Release Oral Capsule Omeprazole 07/21/2021 12:00:00 AM EDT ORAL active [facility]) Hydrocortisone 25 MG/ML Topical Cream Proctocare-HC 07/21/2021 12:00:00 AM EDT active [facility] ( [facility]) No Active Medications 07/21/2021 12:00:00 AM EDT completed [facility] ([facility]) Suprep Bowel Prep Kit Suprep Bowel Prep Kit 07/21/2021 12:00:00 AM EDT active [facility]) Insurance Providers Payer name Policy type / Coverage type Policy ID Covered libertarian ID Covered libertarian's relationship to dunn Policy Dunn Plan Information [facility] ACTIVE DUTY [id number] SP [id number] [employer] [facility] REG O [id number] S [id number] Problems, Conditions, and Diagnoses Code Display Name Description Problem Type Effective Dates Data Source(s) 514383113 Hemorrhage of rectum and anus Hemorrhage of rectum and anus Problem 07/21/2021 12:00:00 AM EDT [facility] ([facility]) Surgeries/Procedures Procedure Description Date Indications Data Source(s) OFFICE OUTPATIENT NEW 45 MINUTES 07/21/2021 12:00:00 A M EDT [facility] ([facility]) Results ID Date Data Source [id number] 10/31/2020 08:43:00 AM EST [facility] Name Value Range Interpretation Code Description Data Marichuy rce(s) Supporting Document(s) SARS coronavirus 2 RNA Not Detected [facility] This lab was ordered by [facility] and reported by [facility]. ID Date Data Source [id number] 09/24/2020 01:03:00 AM EST [facility] Name Value Range Interpretation Code Description Data Marichuy rce(s) Supporting Document(s) SARS coronavirus 2 RNA [Presence] in Res piratory specimen by BRENNA with probe detection [facility] This lab was ordered by [facility] a nd reported by [facility]. Procedure Social History No Information Vital Signs ID Date Data Source UNK Name Value Range Interpretation Code Description Data Source(s) Systolic blood pressure 126 mm[Hg] 126 mm[Hg] M [facility] ([facility]) Heart rate 56 /min 56 /min [facility] Body height 75 [in_i] 75 [in_i] [facility] ([facility]) 6'3" Body weight 245.00 [lb_av] 245.00 [lb_av] [facility] ([facility]) Diastolic blood pressure 80 mm[Hg] 80 mm[Hg] [facility] ([facility]) Body mass index (BMI) [Ratio] 30.6 kg/m2 30.6 k g/m2 [facility] ([facility]) Body weight 111.132 kg 111.132 kg [facility] ([facility]) Body temperature 97.2 [degF] 97.2 [degF] [facility] ([facility])
[2021-08-24 21:21] LABS: HEMATOCRIT 41.9 % (42.0-52.0); HEMOGLOBIN 14.6 g/dl (13.5-17.5); MEAN CORPUSCULAR HGB CONC 34.8 g/dl (32.0-36.5); MEAN CORPUSCULAR VOLUME 91.9 fl (80.0-96.0); PLATELET COUNT, AUTOMATED 181 10^3/uL (150-450); RED BLOOD COUNT 4.56 10^6/uL (4.30-6.10); WHITE BLOOD COUNT 11.2 10^3/uL (4.0-10.0)
[2021-08-24 21:44] LABS: ALBUMIN 3.6 GM/DL (3.2-5.2); ALT/SGPT 151 U/L (12-78); BILIRUBIN,DIRECT 0.1 MG/DL (0.0-0.2); BILIRUBIN,TOTAL 0.5 MG/DL (0.2-1.0); BLOOD UREA NITROGEN 7 MG/DL (7-18); CALCIUM LEVEL 8.8 MG/DL (8.5-10.1); CARBON DIOXIDE LEVEL 27 MEQ/L (21-32); CHLORIDE LEVEL 106 MEQ/L (98-107); CREATININE FOR GFR 0.96 MG/DL (0.70-1.30); GLOMERULAR FILTRATION RATE > 60.0 (>60); GLUCOSE, FASTING 150 MG/DL (70-100); LIPASE 115 U/L (73-393); POTASSIUM SERUM 3.6 MEQ/L (3.5-5.1); SODIUM LEVEL 139 MEQ/L (136-145); TOTAL PROTEIN 7.1 GM/DL (6.4-8.2)
[2021-08-24 22:34] LABS: ATYPICAL LYMPH 57 % (0-5); LYMPHOCYTES 17 % (16-44); MONOCYTES 2 % (0-5); NEUTROPHILS 17 % (28-66); PLATELET ESTIMATE NORMAL (NORMAL)
--- OUTSIDE RECORDS SUMMARY | 2021-08-24 23:57 | CCD ---
Author Author [facility] Organization [facility] Address Unknown Phone Unavailable Care Team Providers Care Tie Presser Name Role Phone Amarjit Salas MD Unavailable [...] is protected by Article 27-F of the [facility] Public Health law. If you continue you may have access to information: Regarding HIV / AIDS; Provided by facilities licensed or operated by the [facility] Office of Mental Health; or Provided by the [facility] Office for People With Developmental Disabilities. If such information is present, then the following [facility] mandated warning applies: This information has been [...] law may result in a fine or shelter sentence or both. A general authorization for [...] relationship to dunn Policy Dunn Plan Information [facility] ACTIVE DUTY [id number] SP [id number] [employer] [facility] REG O [id number] S [id number] Problems, Conditions, and Diagnoses Code Display Name Description Problem Type Effective Dates Data Source(s) [id number] Hemorrhage of rectum and anus Hemorrhage of rectum and anus Problem 07/21/2021 12:00:00 AM EDT [facility] ([facility]) Surgeries/Procedures Procedure Description Date Indications Data Source(s) OFFICE OUTPATIENT NEW 45 MINUTES 07/21/2021 12:00:00 A M EDT [facility] ([facility]) Results ID Date Data Source [id number] 10/31/2020 08:43:00 AM EST [facility] Name Value Range Interpretation Code Description Data Marichuy rce(s) Supporting Document(s) SARS coronavirus 2 RNA Not Detected [facility] This lab was ordered by [facility] and reported by [facility]. ID Date Data Source [id number] 09/24/2020 01:03:00 AM EST [facility] Name Value Range Interpretation Code Description Data Marichuy rce(s) Supporting Document(s) SARS coronavirus 2 RNA [Presence] in Res piratory specimen by BRENNA with probe detection [facility] This lab was ordered by [facility] a nd reported by [facility]. Procedure Social History No Information Vital Signs ID Date Data Source UNK Name Value Range Interpretation Code Description Data Source(s) Systolic blood pressure 126 mm[Hg] 126 mm[Hg] M [facility] ([facility]) Heart rate 56 /min 56 /min [facility] Body height 75 [in_i] 75 [in_i] [facility] ([facility]) 6'3" Body weight 245.00 [lb_av] 245.00 [lb_av] [facility] ([facility]) Diastolic blood pressure 80 mm[Hg] 80 mm[Hg] [facility] Body mass index (BMI) [Ratio] 30.6 kg/m2 30.6 k g/m2 [facility] ([facility]) Body weight 111.132 kg 111.132 kg [facility] ([facility]) Body temperature 97.2 [degF] 97.2 [degF] [facility] ([facility])
== END 2021-08-24 23:50 | disposition left against medical advice (07) ==
LOC: M ED 20:00
DX: Z53.21 Procedure and treatment not carried out due to patient leaving prior to being seen by health care provider (principal)

== ENCOUNTER 2021-09-16 11:16 | Day surgery (SDC) | payer OTHER ==
[~2021-09-16] VITALS: Ht 190.5 cm; Wt 111.6 kg
[~2021-09-16 11:16] MED LIST changes: +LIDOCAINE 2% 100MG/5ML SDV (FOR ANES.) As Ordered ONE; +NS 1,000 ML IV ONE; +OMEP40CA4 PO; +propofoL 200 MG/20 ML VIAL As Ordered ONE
--- OUTSIDE RECORDS SUMMARY | 2021-09-16 11:20 | CCD ---
Author Author [facility] Organization [facility] Address Unknown Phone Unavailable Care Team Providers Care Scrap Piler Name Role Phone Amarjit Salas MD Unavailable [...] is protected by Article 27-F of the [facility] Public Health law. If you continue you may have access to information: Regarding HIV / AIDS; Provided by facilities licensed or operated by the [facility] Office of Mental Health; or Provided by the [facility] Office for People With Developmental Disabilities. If such information is present, then the following [facility] mandated warning applies: This information has [...] law may result in a fine or [facility] sentence or both. A general authorization for [...] type / Coverage type Policy ID Covered green party ID Covered green party's relationship to dunn Policy Dunn Plan Information [facility] ACTIVE DUTY [id number] SP [id number] [employer] [facility] REG O [id number] S [id number] Problems, Conditions, and Diagnoses Code Display Name Description Problem Type Effective Dates Data Source(s) [id number] Hemorrhage of rectum and anus Hemorrhage of rectum and anus Problem 07/21/2021 12:00:00 AM EDT [facility] ([facility]) Surgeries/Procedures Procedure Description Date Indications Data Source(s) OFFICE OUTPATIENT NEW 45 MINUTES 07/21/2021 12:00:00 A M EDT [facility] ([facility]) Results ID Date Data Source [id number] 09/11/2021 11:48:00 AM EST [facility] Name Value Range Interpretation Code Description Data Marichuy rce(s) Supporting Document(s) SARS coronavirus 2 RNA Not Detected [facility] This lab was ordered by [facility] and reported by [facility]. ID Date Data Source [id number] 10/31/2020 08:43:00 AM EST [facility] Name Value Range Interpretation Code Description Data Marichuy rce(s) Supporting Document(s) SARS coronavirus 2 RNA Not Detected [facility] This lab was ordered by [facility] and reported by [facility]. ID Date Data Source [id number] 09/24/2020 01:03:00 AM EST [facility] Name Value Range Interpretation Code Description Data Marichuy rce(s) Supporting Document(s) SARS coronavirus 2 RNA [Presence] in Res piratory specimen by BRENNA with probe detection [facility] This lab was ordered by [facility] a nd reported by [facility]. Procedure Social History No Information Vital Signs ID Date Data Source UNK Name Value Range Interpretation Code Description Data Source(s) Heart rate 56 /min 56 /min [facility] ([facility]) Systolic blood pressure 126 mm[Hg] 126 mm[Hg] M [facility] ([facility]) Body height 75 [in_i] 75 [in_i] [facility]" Body weight 245.00 [lb_av] 245.00 [lb_av] [facility] ([facility]) Diastolic blood pressure 80 mm[Hg] 80 mm[Hg] [facility] ([facility]) Body mass index (BMI) [Ratio] 30.6 kg/m2 30.6 k g/m2 [facility] ([facility]) Body weight 111.132 kg 111.132 kg [facility] ([facility]) Body temperature 97.2 [degF] 97.2 [degF] [facility] ([facility])
--- NOTE | 2021-09-16 12:47 | ROOR ---
Patient Name: Pardeep De Paz Procedure Date: 09/16/2021 12:29 PM Date of : 2000 Age: 21 Room: [facility] Gender: Male Note Status: Finalized Procedure: Upper Endoscopy + Biopsies Indications: Epigastric abdominal pain Providers: Jerod Salas MD Referring MD: LUANA CRAFT MD Requesting Provider: Medicines: Monitored Anesthesia Care Complications: No immediate complications. Procedure: Pre-Anesthesia Assessment: - The heart rate, respiratory rate, oxygen saturations, blood pressure, adequacy of pulmonary ventilation, and response to care were monitored throughout the procedure. The Endoscope was introduced through the mouth, and advanced to the second part of duodenum. The upper GI endoscopy was accomplished without difficulty. The patient tolerated the procedure well. Findings: The Z-line was regular and was found 40 cm from the incisors. Multiple biopsies were obtained with cold forceps for evaluation to rule out Ng's Esophagus randomly at the gastroesophageal junction. No other significant abnormalities were identified in a careful examination of the stomach. Biopsies were taken with a cold forceps in the gastric antrum for Helicobacter pylori testing. The exam of the duodenum was otherwise normal. Impression: - Z-line regular, 40 cm from the incisors. - Multiple biopsies were obtained at the gastroesophageal junction. - Biopsies were taken with a cold forceps for Helicobacter pylori testing. - The examination was otherwise normal. Recommendation: - Patient has a contact number available for emergencies. The signs and symptoms of potential delayed complications were discussed with the patient. Return to normal activities tomorrow. Written discharge instructions were provided to the patient. - High fiber diet. - Discharge patient to home. - Follow an antireflux regimen. - Continue present medications. - Await pathology results. - Telephone GI clinic for pathology results in 1 week. - The findings and recommendations were discussed with the patient. Procedure Code(s): --- Professional --- 24249, Esophagogastroduodenoscopy, flexible, transoral; with biopsy, single or multiple Diagnosis Code(s): --- Professional --- R10.13, Epigastric pain CPT copyright 2019 [employer]. All rights reserved. The codes documented in this report are preliminary and upon shuttlecock assembler review may be revised to meet current compliance requirements. Jerod Salas MD Jerod Salas MD 09/16/2021 12:46:36 PM Electronically signed by Jerod Salas MD Number of Addenda: 0 Note Initiated On: 09/16/2021 12:29 PM Estimated Blood Loss: Estimated blood loss: none.
--- NOTE | 2021-09-16 12:57 | ROOR ---
Patient Name: Pardeep De Paz Procedure Date: 09/16/2021 12:30 PM Date of : 2000 Age: 21 Room: [facility] Gender: Male Note Status: Finalized Procedure: Colonoscopy to 25 cms- POOR PREP Indications: Rectal bleeding Providers: Jerod Salas MD Referring MD: LUANA CRAFT MD Requesting Provider: Medicines: Monitored Anesthesia Care Complications: No immediate complications. Procedure: Pre-Anesthesia Assessment: - The heart rate, respiratory rate, oxygen saturations, blood pressure, adequacy of pulmonary ventilation, and response to care were monitored throughout the procedure. The Colonoscope was introduced through the anus with the intention of advancing to the cecum. The scope was advanced to the sigmoid colon before the procedure was aborted. Medications were given. The colonoscopy was performed without difficulty. The patient tolerated the procedure well. The quality of the bowel preparation was inadequate. Findings: The perianal and digital rectal examinations were normal. Non-bleeding internal hemorrhoids were found during retroflexion. The hemorrhoids were small and Grade I (internal hemorrhoids that do not prolapse). A large amount of solid stool was found in the recto-sigmoid colon. The exam was otherwise without abnormality. Impression: - Preparation of the colon was inadequate. - Non-bleeding internal hemorrhoids. - Stool in the recto-sigmoid colon. - The examination was otherwise normal. - No specimens collected. - The exam was suboptimal due to patient preparation. Recommendation: - The findings and recommendations were discussed with the patient. Procedure Code(s): --- Professional --- 21857, 53, Colonoscopy, flexible; diagnostic, including collection of specimen(s) by brushing or washing, when performed (separate procedure) Diagnosis Code(s): --- Professional --- K64.0, First degree hemorrhoids K62.5, Hemorrhage of anus and rectum CPT copyright 2019 [employer]. All rights reserved. The codes documented in this report are preliminary and upon him coder review may be revised to meet current compliance requirements. Jerod Salas MD Jerod Salas MD 09/16/2021 12:57:11 PM Electronically signed by Jerod Salas MD Number of Addenda: 0 Note Initiated On: 09/16/2021 12:30 PM Estimated Blood Loss: Estimated blood loss: none.
[2021-09-16 13:25] VITALS: BP 131/77
== END 2021-09-16 13:33 | disposition home or self-care (01) ==
LOC: M OPP 11:16
PROVIDERS: ATTEND Internal Medicine Gastroenterology
DX: K62.5 Hemorrhage of anus and rectum (principal); K64.0 First degree hemorrhoids; K21.00 Gastro-esophageal reflux disease with esophagitis, without bleeding; R10.13 Epigastric pain

== ENCOUNTER 2021-09-24 21:24 | Emergency (ER) | payer OTHER ==
[~2021-09-24] VITALS: Ht 190.5 cm; Wt 114.7 kg
[2021-09-24 21:24] VITALS: BP 166/84
[~2021-09-24 21:24] MED LIST changes: -LIDOCAINE 2% 100MG/5ML SDV (FOR ANES.) As Ordered ONE; -NS 1,000 ML IV ONE; -propofoL 200 MG/20 ML VIAL As Ordered ONE
[2021-12-02] MEDS ORDERED: IBUP-1022 PO (12:12)
== END 2021-09-25 00:06 | disposition left against medical advice (07) ==
LOC: M ED 21:24
DX: Z53.21 Procedure and treatment not carried out due to patient leaving prior to being seen by health care provider (principal)

== ENCOUNTER → 2021-12-02 | Day surgery (SDC) | payer OTHER ==
[~2021-12-02] VITALS: Ht 190.5 cm; Wt 116.6 kg
[~2021-12-02] MED LIST changes: +IBUP-1022 PO; +LIDOCAINE 2% 100MG/5ML SDV (FOR ANES.) As Ordered ONE; +NS 1,000 ML IV ONE; +propofoL 200 MG/20 ML VIAL As Ordered ONE
[2021-12-02 14:23] VITALS: BP 138/89
== END | disposition home or self-care (01) ==
LOC: M OPP 11:50
PROVIDERS: ATTEND Internal Medicine Gastroenterology
DX: K62.5 Hemorrhage of anus and rectum (principal); K62.89 Other specified diseases of anus and rectum; K44.9 Diaphragmatic hernia without obstruction or gangrene; K22.89 Other specified disease of esophagus; R12 Heartburn; F17.210 Nicotine dependence, cigarettes, uncomplicated